=== PATIENT | male | born 1955 | race Caucasian/White ===

== ENCOUNTER 2018-05-18 07:54 | Inpatient (IN) | payer OTHER ==
[~2018-05-18] VITALS: Ht 175.3 cm; Wt 50.5 kg
[2018-05-18] VITALS (12 sets, daily range): BP systolic 97–159; BP diastolic 53–87
[~2018-05-18 07:54] MED LIST: ASPI-1197 PO; AUD IH; AZIT250T9 PO; CARV3.12 PO; CLOP75TA32 PO; FOLI-74 PO; IBUP-2071 PO; IPRA0.2S54 IH; LEVO500T2 PO; PRED20TA3 PO; SIMV20TA6 PO; TIOT18CA3 IH
[2018-05-18] MEDS ORDERED: METHYLPREDNISOLONE SOD SUCC 125MG/2ML VIAL ONE (08:05)
[2018-05-18] MEDS ORDERED: IPRATROPIUM/ALBUTEROL SULFATE 3 ML SOLUTION IH ONE ×3 (08:20)
[2018-05-18] MEDS ORDERED: VANCOMYCIN 1GM+NS 250ML 250 ML IV ONE (08:52)
[2018-05-18] MEDS ORDERED: MAGNESIUM 2GM PREMIX 50ML 50 ML IV ONE (08:52)
[2018-05-18 09:00] LABS: BASOPHILS % (AUTO) 0.8 % (0.0-5.0); EOSINOPHILS % (AUTO) 2.1 % (0.0-8.0); HEMATOCRIT 43.2 % (42-54); LYMPHOCYTES % (AUTO) 34.4 % (21.0-51.0); MEAN CORPUSCULAR HEMOGLOBIN 32.1 pg (27.0-33.0); MEAN CORPUSCULAR HGB CONC 32.4 g/dL (32.0-36.0); MEAN CORPUSCULAR VOLUME 98.9 fL (79-99); MONOCYTES % (AUTO) 7.6 % (3.0-13.0); NEUTROPHILS % (AUTO) 55.1 % (40.0-77.0); NUCLEATED RED BLOOD CELLS 0.1 % (0.0-0.19); PLATELET COUNT (AUTO) 204 K/uL (130-400); RED BLOOD CELL COUNT(AUTO) 4.36 MIL/uL (4.50-6.20); RED CELL DISTRIBUTION WIDTH 14.4 % (11.0-15.5); WHITE BLOOD COUNT (AUTO) 9.7 K/uL (4.8-10.8)
[2018-05-18 09:08] LABS: ABG BASE EXCESS -9.7 mmol/L (-2.0-3.0); ABG OXYGEN SATURATION 99.7 % (95.0-99.0); ABG PCO2 86 mmHg (35-48)
[2018-05-18 09:11] LABS: INR 1.02 (0.85-1.15); PARTIAL THROMBOPLASTIN TIME 26.5 SEC (26.3-35.5); PROTHROMBIN TIME 10.7 SEC (9.6-11.6)
[2018-05-18 09:23] LABS: B-TYPE NATRIURETIC PEPTIDE 2800 pg/mL (0-100)
[2018-05-18 09:42] LABS: ALBUMIN 2.9 g/dL (3.5-5.0); BILIRUBIN,TOTAL 0.5 mg/dL (0.2-1.0); POTASSIUM 5.3 mmol/L (3.5-5.1); TOTAL PROTEIN, SERUM 6.9 g/dL (6.0-8.3)
[2018-05-18 09:49] LABS: CREATININE 1.1 mg/dL (0.5-1.5)
[2018-05-18] MEDS ORDERED: SODIUM CHLORIDE 0.9% 1000ML 1,000 ML IV ONE (10:20)
[2018-05-18] MEDS ORDERED: VANCOMYCIN PROTOCOL PER PHARMACY IV SCH (11:00)
[2018-05-18] MEDS ORDERED: NICARDIPINE IN NACL, ISO-OSM 200 ML IV PRN (11:00)
[2018-05-18] MEDS: METHYLPREDNISOLONE SOD SUCC 40MG/ML 1ML IVP SCH ×3 (11:04→22:21)
[2018-05-18] MEDS ORDERED: SIMV20TA6 PO (11:04)
[2018-05-18] MEDS ORDERED: IBUP-2071 PO (11:04)
[2018-05-18] MEDS ORDERED: CARV3.1262 PO (11:04)
[2018-05-18] MEDS ORDERED: UMEC1DIS IH (11:06)
[2018-05-18] MEDS: LEVOFLOXACIN 750 MG/D5W 150 ML 150 ML IV SCH (11:24)
[2018-05-18] MEDS ORDERED: NICOTINE 21 MG/ 24 HR PATCH TD SCH (11:45)
[2018-05-18] MEDS ORDERED: ALBUTEROL SULFATE 0.083% 2.5 MG/3 ML INH IH SCH (11:45)
[2018-05-18 12:15] LABS: ABG BASE EXCESS -8.4 mmol/L (-2.0-3.0); ABG HCO3 20.9 mmol/L (21.0-28.0); ABG OXYGEN SATURATION 90.8 % (95.0-99.0); ABG PCO2 59 mmHg (35-48)
[2018-05-18] MEDS ORDERED: COMPOUND IV REFRIGERATED 1 EACH IVSOLN MISC PRN (13:15)
[2018-05-18] MEDS: IPRATROPIUM/ALBUTEROL SULFATE 3 ML SOLUTION IH SCH ×3 (14:09→21:46)
[2018-05-18] MEDS: SODIUM CHLORIDE 0.9% 1000ML 1,000 ML IV SCH (14:30)
[2018-05-18 15:59] LABS: ABG BASE EXCESS -5.5 mmol/L (-2.0-3.0); ABG HCO3 21.5 mmol/L (21.0-28.0); ABG OXYGEN SATURATION 95.7 % (95.0-99.0); ABG PCO2 47 mmHg (35-48)
[2018-05-18 16:17] LABS: CREATINE KINASE MB 11.4 ng/mL (0.5-3.6)
[2018-05-18 16:24] LABS: TROPONIN I 1.25 ng/mL (0.00-0.06)
[2018-05-18] MEDS: VANCOMYCIN 750MG + NS 250 ML IV SCH ×2 (20:26)
[2018-05-18 22:46] LABS: CREATINE KINASE MB 16.8 ng/mL (0.5-3.6)
[2018-05-18 23:07] LABS: TROPONIN I 3.6 ng/mL (0.00-0.06)
[2018-05-19] VITALS (25 sets, daily range): BP systolic 88–122; BP diastolic 46–79
[2018-05-19] MEDS: IPRATROPIUM/ALBUTEROL SULFATE 3 ML SOLUTION IH SCH ×6 (02:25→21:11)
[2018-05-19] MEDS: SODIUM CHLORIDE 0.9% 1000ML 1,000 ML IV SCH ×2 (02:41→19:06)
[2018-05-19 04:02] LABS: HEMATOCRIT 41.7 % (42-54); MEAN CORPUSCULAR HGB CONC 32.2 g/dL (32.0-36.0); MEAN CORPUSCULAR VOLUME 96.3 fL (79-99); NUCLEATED RED BLOOD CELLS 0.1 % (0.0-0.19); PLATELET COUNT (AUTO) 146 K/uL (130-400); RED BLOOD CELL COUNT(AUTO) 4.34 MIL/uL (4.50-6.20); RED CELL DISTRIBUTION WIDTH 13.7 % (11.0-15.5)
[2018-05-19 04:17] LABS: CREATININE 1.1 mg/dL (0.5-1.5); POTASSIUM 5.4 mmol/L (3.5-5.1)
[2018-05-19 05:16] LABS: ABG BASE EXCESS -2.7 mmol/L (-2.0-3.0); ABG HCO3 20.8 mmol/L (21.0-28.0); ABG OXYGEN SATURATION 98.6 % (95.0-99.0); ABG PCO2 33 mmHg (35-48)
[2018-05-19] MEDS: METHYLPREDNISOLONE SOD SUCC 40MG/ML 1ML IVP SCH ×3 (09:39→20:49)
[2018-05-19] MEDS: PANTOPRAZOLE SODIUM 40 MG TABLET.DR PO SCH (09:40)
[2018-05-19] MEDS: VANCOMYCIN 750MG + NS 250 ML IV SCH ×2 (09:42)
[2018-05-19] MEDS: ENOXAPARIN SODIUM 40 MG/0.4 ML SYRINGE SQ SCH (14:15)
[2018-05-19] MEDS: LEVOFLOXACIN 750 MG/D5W 150 ML 150 ML IV SCH (14:17)
[2018-05-19] MEDS ORDERED: LORAZEPAM 2 MG/ML 1 ML VIAL IVP PRN (15:00)
[2018-05-19] MEDS ORDERED: THIAMINE HCL 100 MG/ML 2ML VIAL IVP SCH (15:00)
[2018-05-19] MEDS ORDERED: CLOPIDOGREL BISULFATE 300 MG TAB PO SCH (19:15)
[2018-05-19] MEDS: FUROSEMIDE 10 MG/ML 2ML VIAL IV SCH (19:58)
[2018-05-19] MEDS ORDERED: THIAMINE HCL 100 MG/ML 2ML VIAL ONE ×2 (20:35→20:36)
[2018-05-19] MEDS: CARVEDILOL 3.125 MG TABLET PO SCH (21:00)
[2018-05-19] MEDS: BUDESONIDE 0.5 MG/2 ML INH IH SCH (21:11)
[2018-05-19] MEDS: SIMVASTATIN 20 MG TABLET PO SCH (21:58)
[2018-05-20] VITALS (25 sets, daily range): BP systolic 89–123; BP diastolic 57–80
[2018-05-20] MEDS: METHYLPREDNISOLONE SOD SUCC 40MG/ML 1ML IVP SCH ×5 (00:59→22:22)
[2018-05-20] MEDS: SODIUM CHLORIDE 0.9% 1000ML 1,000 ML IV SCH (01:00)
[2018-05-20] MEDS: IPRATROPIUM/ALBUTEROL SULFATE 3 ML SOLUTION IH SCH ×6 (02:16→22:12)
[2018-05-20 03:49] LABS: MEAN CORPUSCULAR HEMOGLOBIN 31.9 pg (27.0-33.0); MEAN CORPUSCULAR HGB CONC 33.3 g/dL (32.0-36.0); MEAN CORPUSCULAR VOLUME 95.6 fL (79-99); NUCLEATED RED BLOOD CELLS 0.1 % (0.0-0.19); PLATELET COUNT (AUTO) 147 K/uL (130-400); RED BLOOD CELL COUNT(AUTO) 3.97 MIL/uL (4.50-6.20); RED CELL DISTRIBUTION WIDTH 13.6 % (11.0-15.5); WHITE BLOOD COUNT (AUTO) 12.3 K/uL (4.8-10.8)
[2018-05-20 04:01] LABS: INR 1.1 (0.85-1.15); PARTIAL THROMBOPLASTIN TIME 28.2 SEC (26.3-35.5); PROTHROMBIN TIME 11.5 SEC (9.6-11.6)
[2018-05-20 04:16] LABS: PHOSPHORUS 2.4 mg/dL (2.5-4.9); POTASSIUM 4.6 mmol/L (3.5-5.1); THYROID STIMULATING HORMONE 1.71 uIU/mL (0.36-3.74)
[2018-05-20] MEDS: BUDESONIDE 0.5 MG/2 ML INH IH SCH ×2 (06:11→18:27)
[2018-05-20] MEDS: FUROSEMIDE 10 MG/ML 2ML VIAL IV SCH ×2 (08:51→20:14)
[2018-05-20] MEDS: PANTOPRAZOLE SODIUM 40 MG TABLET.DR PO SCH (08:51)
[2018-05-20] MEDS: CARVEDILOL 3.125 MG TABLET PO SCH ×2 (08:52→20:13)
[2018-05-20] MEDS: FOLIC ACID 1 MG TABLET PO SCH (08:52)
[2018-05-20] MEDS: CLOPIDOGREL BISULFATE 75 MG TAB PO SCH (08:53)
[2018-05-20] MEDS: ASPIRIN 81MG TAB.CHEW PO SCH (08:53)
[2018-05-20] MEDS: MULTIVITAMIN TABLET PO SCH (08:53)
[2018-05-20] MEDS: THIAMINE HCL 100 MG TABLET PO SCH (08:53)
[2018-05-20] MEDS: ENOXAPARIN SODIUM 40 MG/0.4 ML SYRINGE SQ SCH (08:54)
[2018-05-20] MEDS: SIMVASTATIN 20 MG TABLET PO SCH (20:13)
[2018-05-20] MEDS ORDERED: POTASSIUM PHOS 15 mMOL+NS250ML 250 ML IV SCH (20:30)
[2018-05-21] VITALS (17 sets, daily range): BP systolic 87–113; BP diastolic 60–75
[2018-05-21] MEDS: IPRATROPIUM/ALBUTEROL SULFATE 3 ML SOLUTION IH SCH ×6 (01:51→21:39)
[2018-05-21] MEDS ORDERED: ACETAMINOPHEN 325 MG TAB ONE (02:04)
[2018-05-21] MEDS: METHYLPREDNISOLONE SOD SUCC 40MG/ML 1ML IVP SCH ×4 (04:38→23:00)
[2018-05-21 04:48] LABS: ABG BASE EXCESS 1.9 mmol/L (-2.0-3.0); ABG HCO3 25.6 mmol/L (21.0-28.0); ABG OXYGEN SATURATION 98.8 % (95.0-99.0); ABG PCO2 37 mmHg (35-48)
[2018-05-21 05:07] LABS: HEMATOCRIT 35.5 % (42-54); MEAN CORPUSCULAR HEMOGLOBIN 31.1 pg (27.0-33.0); MEAN CORPUSCULAR HGB CONC 32.8 g/dL (32.0-36.0); MEAN CORPUSCULAR VOLUME 94.8 fL (79-99); NUCLEATED RED BLOOD CELLS 0.1 % (0.0-0.19); PLATELET COUNT (AUTO) 123 K/uL (130-400); RED BLOOD CELL COUNT(AUTO) 3.74 MIL/uL (4.50-6.20); RED CELL DISTRIBUTION WIDTH 13.6 % (11.0-15.5); WHITE BLOOD COUNT (AUTO) 10.8 K/uL (4.8-10.8)
[2018-05-21 05:21] LABS: INR 1.1 (0.85-1.15); PARTIAL THROMBOPLASTIN TIME 26.8 SEC (26.3-35.5); PROTHROMBIN TIME 11.5 SEC (9.6-11.6)
[2018-05-21 05:24] LABS: ALBUMIN 2.4 g/dL (3.5-5.0); BILIRUBIN,TOTAL 0.3 mg/dL (0.2-1.0); CREATININE 1.1 mg/dL (0.5-1.5); MAGNESIUM 1.9 mg/dL (1.80-2.40); PHOSPHORUS 2.9 mg/dL (2.5-4.9); POTASSIUM 3.9 mmol/L (3.5-5.1); TOTAL PROTEIN, SERUM 5.5 g/dL (6.0-8.3)
[2018-05-21 05:41] LABS: B-TYPE NATRIURETIC PEPTIDE 3010 pg/mL (0-100)
[2018-05-21] MEDS: BUDESONIDE 0.5 MG/2 ML INH IH SCH ×2 (06:25→18:40)
[2018-05-21] MEDS: FUROSEMIDE 10 MG/ML 2ML VIAL IV SCH ×2 (06:30→17:32)
[2018-05-21] MEDS: CLOPIDOGREL BISULFATE 75 MG TAB PO SCH (08:25)
[2018-05-21] MEDS: THIAMINE HCL 100 MG TABLET PO SCH (08:25)
[2018-05-21] MEDS: MULTIVITAMIN TABLET PO SCH (08:25)
[2018-05-21] MEDS: FOLIC ACID 1 MG TABLET PO SCH (08:26)
[2018-05-21] MEDS: CARVEDILOL 3.125 MG TABLET PO SCH ×3 (08:26→21:20)
[2018-05-21] MEDS: ASPIRIN 81MG TAB.CHEW PO SCH (08:26)
[2018-05-21] MEDS: PANTOPRAZOLE SODIUM 40 MG TABLET.DR PO SCH (08:26)
[2018-05-21] MEDS: ENOXAPARIN SODIUM 40 MG/0.4 ML SYRINGE SQ SCH (08:26)
[2018-05-21 09:20] LABS: CHOLESTEROL 105 mg/dL (<200); HDL CHOLESTEROL 32 mg/dL (29-71); LDL DIRECT 65 mg/dL (0-99); TRIGLYCERIDES 91 mg/dL (30-200)
[2018-05-21 13:39] LABS: ABG BASE EXCESS -0.1 mmol/L (-2.0-3.0); ABG HCO3 24.5 mmol/L (21.0-28.0); ABG OXYGEN SATURATION 98.4 % (95.0-99.0); ABG PCO2 40 mmHg (35-48)
[2018-05-21] MEDS: SIMVASTATIN 20 MG TABLET PO SCH (21:20)
[2018-05-22] MEDS: IPRATROPIUM/ALBUTEROL SULFATE 3 ML SOLUTION IH SCH ×5 (01:47→18:06)
[2018-05-22 03:53] VITALS: BP 96/71
[2018-05-22] MEDS: METHYLPREDNISOLONE SOD SUCC 40MG/ML 1ML IVP SCH ×4 (05:30→22:01)
[2018-05-22] MEDS: FUROSEMIDE 10 MG/ML 2ML VIAL IV SCH (05:30)
[2018-05-22] MEDS: BUDESONIDE 0.5 MG/2 ML INH IH SCH ×2 (06:11→18:11)
[2018-05-22 07:31] VITALS: BP 107/84
[2018-05-22] MEDS: CLOPIDOGREL BISULFATE 75 MG TAB PO SCH (08:25)
[2018-05-22] MEDS: ASPIRIN 81MG TAB.CHEW PO SCH (08:25)
[2018-05-22] MEDS: PANTOPRAZOLE SODIUM 40 MG TABLET.DR PO SCH (08:25)
[2018-05-22] MEDS: THIAMINE HCL 100 MG TABLET PO SCH (08:25)
[2018-05-22] MEDS: FOLIC ACID 1 MG TABLET PO SCH (08:25)
[2018-05-22] MEDS: CARVEDILOL 3.125 MG TABLET PO SCH ×2 (08:25→20:15)
[2018-05-22] MEDS: MULTIVITAMIN TABLET PO SCH (08:25)
[2018-05-22] MEDS: ENOXAPARIN SODIUM 40 MG/0.4 ML SYRINGE SQ SCH (08:26)
[2018-05-22] MEDS ORDERED: FUROSEMIDE 40 MG TABLET ONE (09:39)
[2018-05-22] MEDS: FUROSEMIDE 40 MG TABLET PO SCH (10:00)
[2018-05-22 11:08] VITALS: BP 87/52
[2018-05-22 16:26] VITALS: BP 106/71
[2018-05-22 18:29] VITALS: BP 104/65
[2018-05-22] MEDS: SIMVASTATIN 20 MG TABLET PO SCH (20:15)
[2018-05-22 23:29] VITALS: BP 106/72
[2018-05-23 03:59] VITALS: BP 99/69
[2018-05-23 03:59] LABS: BASOPHILS % (AUTO) 0.1 % (0.0-5.0); HEMATOCRIT 36.5 % (42-54); LYMPHOCYTES % (AUTO) 3.6 % (21.0-51.0); MEAN CORPUSCULAR HEMOGLOBIN 31.8 pg (27.0-33.0); MEAN CORPUSCULAR HGB CONC 33.6 g/dL (32.0-36.0); MEAN CORPUSCULAR VOLUME 94.5 fL (79-99); MONOCYTES % (AUTO) 5.6 % (3.0-13.0); NEUTROPHILS % (AUTO) 90.7 % (40.0-77.0); NUCLEATED RED BLOOD CELLS 0.2 % (0.0-0.19); PLATELET COUNT (AUTO) 118 K/uL (130-400); RED BLOOD CELL COUNT(AUTO) 3.86 MIL/uL (4.50-6.20); RED CELL DISTRIBUTION WIDTH 13.5 % (11.0-15.5)
[2018-05-23] MEDS: METHYLPREDNISOLONE SOD SUCC 40MG/ML 1ML IVP SCH ×4 (04:01→21:49)
[2018-05-23 04:25] LABS: CREATININE 1.3 mg/dL (0.5-1.5); PHOSPHORUS 3.4 mg/dL (2.5-4.9); POTASSIUM 3.6 mmol/L (3.5-5.1)
[2018-05-23 04:29] LABS: B-TYPE NATRIURETIC PEPTIDE 2870 pg/mL (0-100)
[2018-05-23] MEDS: BUDESONIDE 0.5 MG/2 ML INH IH SCH ×2 (06:19→19:48)
[2018-05-23 07:36] VITALS: BP 108/74
[2018-05-23 08:16] LABS: ABG BASE EXCESS 6.6 mmol/L (-2.0-3.0); ABG OXYGEN SATURATION 94.8 % (95.0-99.0); ABG PCO2 49 mmHg (35-48)
[2018-05-23] MEDS: PANTOPRAZOLE SODIUM 40 MG TABLET.DR PO SCH (08:42)
[2018-05-23] MEDS: FUROSEMIDE 40 MG TABLET PO SCH (08:42)
[2018-05-23] MEDS: MULTIVITAMIN TABLET PO SCH (08:43)
[2018-05-23] MEDS: ASPIRIN 81MG TAB.CHEW PO SCH (08:43)
[2018-05-23] MEDS: CLOPIDOGREL BISULFATE 75 MG TAB PO SCH (08:43)
[2018-05-23] MEDS: CARVEDILOL 3.125 MG TABLET PO SCH ×2 (08:44→21:36)
[2018-05-23] MEDS: THIAMINE HCL 100 MG TABLET PO SCH (08:44)
[2018-05-23] MEDS: FOLIC ACID 1 MG TABLET PO SCH (08:44)
[2018-05-23] MEDS: ENOXAPARIN SODIUM 40 MG/0.4 ML SYRINGE SQ SCH (08:45)
[2018-05-23 11:27] VITALS: BP 107/70
[2018-05-23 16:17] VITALS: BP 100/69
[2018-05-23] MEDS: IPRATROPIUM 0.5 MG/2.5 ML INH IH PRN (19:26)
[2018-05-23 19:32] VITALS: BP 121/82
[2018-05-23] MEDS: SIMVASTATIN 20 MG TABLET PO SCH (21:35)
[2018-05-23 23:37] VITALS: BP 118/88
[2018-05-24 03:15] VITALS: BP 107/73
[2018-05-24 04:38] LABS: CREATININE 0.9 mg/dL (0.5-1.5); PHOSPHORUS 3.8 mg/dL (2.5-4.9)
[2018-05-24 04:56] LABS: POTASSIUM 2.9 mmol/L (3.5-5.1)
[2018-05-24] MEDS: METHYLPREDNISOLONE SOD SUCC 40MG/ML 1ML IVP SCH (06:20)
[2018-05-24] MEDS: IPRATROPIUM 0.5 MG/2.5 ML INH IH PRN ×4 (06:20→23:30)
[2018-05-24] MEDS: BUDESONIDE 0.5 MG/2 ML INH IH SCH ×2 (06:43→18:20)
[2018-05-24] MEDS ORDERED: POTASSIUM CHLORIDE 10% ELIXIR 20 MEQ/15 ML UDCUP PO PRN (06:45)
[2018-05-24] MEDS ORDERED: POTASSIUM CHLORIDE 20MEQ/100ML 100 ML IV PRN (06:45)
[2018-05-24] MEDS ORDERED: LIDOCAINE HCL-MPF 1% 2ML VIAL IVP PRN (06:45)
[2018-05-24 07:00] VITALS: BP 136/81
[2018-05-24 08:12] LABS: ABG BASE EXCESS 7.3 mmol/L (-2.0-3.0); ABG HCO3 33.1 mmol/L (21.0-28.0); ABG OXYGEN SATURATION 95.3 % (95.0-99.0); ABG PCO2 51 mmHg (35-48)
[2018-05-24] MEDS: FOLIC ACID 1 MG TABLET PO SCH (08:32)
[2018-05-24] MEDS: ASPIRIN 81MG TAB.CHEW PO SCH (08:32)
[2018-05-24] MEDS: MULTIVITAMIN TABLET PO SCH (08:32)
[2018-05-24] MEDS: CLOPIDOGREL BISULFATE 75 MG TAB PO SCH (08:32)
[2018-05-24] MEDS: THIAMINE HCL 100 MG TABLET PO SCH (08:32)
[2018-05-24] MEDS: CARVEDILOL 3.125 MG TABLET PO SCH ×2 (08:33→20:51)
[2018-05-24] MEDS: FUROSEMIDE 20 MG TABLET PO SCH (08:33)
[2018-05-24] MEDS: PANTOPRAZOLE SODIUM 40 MG TABLET.DR PO SCH (08:33)
[2018-05-24] MEDS: PREDNISONE 20 MG TABLET PO SCH (08:33)
[2018-05-24] MEDS: ENOXAPARIN SODIUM 40 MG/0.4 ML SYRINGE SQ SCH (08:34)
[2018-05-24] MEDS: POTASSIUM CHLORIDE 20 MEQ ERTAB PO PRN ×2 (08:37→13:17)
[2018-05-24 11:00] VITALS: BP 141/84
[2018-05-24 16:00] VITALS: BP 135/97
[2018-05-24] MEDS: ALPRAZOLAM 1 MG TAB PO PRN (17:14)
[2018-05-24 19:00] VITALS: BP 125/87
[2018-05-24] MEDS: SIMVASTATIN 20 MG TABLET PO SCH (20:51)
[2018-05-24 23:00] VITALS: BP 94/61
[2018-05-25 03:00] VITALS: BP 114/87
[2018-05-25] MEDS: IPRATROPIUM 0.5 MG/2.5 ML INH IH PRN ×3 (06:07→18:49)
[2018-05-25] MEDS: BUDESONIDE 0.5 MG/2 ML INH IH SCH ×2 (06:28→18:59)
[2018-05-25 07:00] VITALS: BP 120/81
[2018-05-25] MEDS: CLOPIDOGREL BISULFATE 75 MG TAB PO SCH (08:29)
[2018-05-25] MEDS: PREDNISONE 20 MG TABLET PO SCH (08:29)
[2018-05-25] MEDS: ASPIRIN 81MG TAB.CHEW PO SCH (08:29)
[2018-05-25] MEDS: ENOXAPARIN SODIUM 40 MG/0.4 ML SYRINGE SQ SCH (08:29)
[2018-05-25] MEDS: PANTOPRAZOLE SODIUM 40 MG TABLET.DR PO SCH (08:29)
[2018-05-25] MEDS: MULTIVITAMIN TABLET PO SCH (08:29)
[2018-05-25] MEDS: CARVEDILOL 3.125 MG TABLET PO SCH ×2 (08:29→20:58)
[2018-05-25] MEDS: FUROSEMIDE 20 MG TABLET PO SCH (08:30)
[2018-05-25] MEDS: FOLIC ACID 1 MG TABLET PO SCH (08:30)
[2018-05-25] MEDS: THIAMINE HCL 100 MG TABLET PO SCH (08:31)
[2018-05-25 11:00] VITALS: BP 106/76
[2018-05-25 16:00] VITALS: BP 132/70
[2018-05-25 19:00] VITALS: BP 109/73
[2018-05-25] MEDS: SIMVASTATIN 20 MG TABLET PO SCH (20:58)
[2018-05-25 23:00] VITALS: BP 117/77
[2018-05-26] MEDS: IPRATROPIUM 0.5 MG/2.5 ML INH IH PRN ×5 (00:04→23:05)
[2018-05-26 03:00] VITALS: BP 111/78
[2018-05-26] MEDS: BUDESONIDE 0.5 MG/2 ML INH IH SCH ×2 (06:18→18:04)
[2018-05-26 07:44] VITALS: BP 132/62
[2018-05-26] MEDS: MULTIVITAMIN TABLET PO SCH (09:16)
[2018-05-26] MEDS: ASPIRIN 81MG TAB.CHEW PO SCH (09:16)
[2018-05-26] MEDS: CLOPIDOGREL BISULFATE 75 MG TAB PO SCH (09:16)
[2018-05-26] MEDS: PANTOPRAZOLE SODIUM 40 MG TABLET.DR PO SCH (09:16)
[2018-05-26] MEDS: FOLIC ACID 1 MG TABLET PO SCH (09:16)
[2018-05-26] MEDS: THIAMINE HCL 100 MG TABLET PO SCH (09:16)
[2018-05-26] MEDS: PREDNISONE 20 MG TABLET PO SCH (09:16)
[2018-05-26] MEDS: CARVEDILOL 3.125 MG TABLET PO SCH ×2 (09:17→19:36)
[2018-05-26] MEDS: FUROSEMIDE 20 MG TABLET PO SCH (09:17)
[2018-05-26] MEDS: ENOXAPARIN SODIUM 40 MG/0.4 ML SYRINGE SQ SCH (09:18)
[2018-05-26 11:11] VITALS: BP 138/95
[2018-05-26 16:37] VITALS: BP 118/73
[2018-05-26] MEDS: SIMVASTATIN 20 MG TABLET PO SCH (19:36)
[2018-05-26] MEDS: ALPRAZOLAM 1 MG TAB PO PRN (19:36)
[2018-05-26 19:54] VITALS: BP 114/81
[2018-05-26 23:35] VITALS: BP 107/73
[2018-05-27] MEDS: ALPRAZOLAM 1 MG TAB PO PRN ×2 (02:36→09:44)
[2018-05-27 04:23] VITALS: BP 119/66
[2018-05-27] MEDS: IPRATROPIUM 0.5 MG/2.5 ML INH IH PRN ×4 (05:57→23:37)
[2018-05-27] MEDS: BUDESONIDE 0.5 MG/2 ML INH IH SCH ×2 (06:19→19:05)
[2018-05-27 07:54] VITALS: BP 115/81
[2018-05-27] MEDS: ASPIRIN 81MG TAB.CHEW PO SCH (09:40)
[2018-05-27] MEDS: PREDNISONE 20 MG TABLET PO SCH (09:40)
[2018-05-27] MEDS: PANTOPRAZOLE SODIUM 40 MG TABLET.DR PO SCH (09:40)
[2018-05-27] MEDS: FOLIC ACID 1 MG TABLET PO SCH (09:40)
[2018-05-27] MEDS: THIAMINE HCL 100 MG TABLET PO SCH (09:40)
[2018-05-27] MEDS: FUROSEMIDE 20 MG TABLET PO SCH (09:40)
[2018-05-27] MEDS: MULTIVITAMIN TABLET PO SCH (09:40)
[2018-05-27] MEDS: CLOPIDOGREL BISULFATE 75 MG TAB PO SCH (09:40)
[2018-05-27] MEDS: CARVEDILOL 3.125 MG TABLET PO SCH ×2 (09:41→20:59)
[2018-05-27] MEDS: ENOXAPARIN SODIUM 40 MG/0.4 ML SYRINGE SQ SCH (09:45)
[2018-05-27 11:07] VITALS: BP 97/72
[2018-05-27 16:17] VITALS: BP 115/84
[2018-05-27 19:36] VITALS: BP 119/85
[2018-05-27] MEDS: SIMVASTATIN 20 MG TABLET PO SCH (20:58)
[2018-05-28] VITALS (7 sets, daily range): BP systolic 116–126; BP diastolic 61–92
[2018-05-28] MEDS: ALPRAZOLAM 0.5 MG TABLET PO PRN ×2 (02:24→21:07)
[2018-05-28] MEDS: IPRATROPIUM 0.5 MG/2.5 ML INH IH PRN ×4 (06:37→23:52)
[2018-05-28] MEDS: BUDESONIDE 0.5 MG/2 ML INH IH SCH ×2 (06:38→18:27)
[2018-05-28] MEDS: CARVEDILOL 3.125 MG TABLET PO SCH ×2 (10:17→20:21)
[2018-05-28] MEDS: FOLIC ACID 1 MG TABLET PO SCH (10:17)
[2018-05-28] MEDS: ASPIRIN 81MG TAB.CHEW PO SCH (10:17)
[2018-05-28] MEDS: FUROSEMIDE 20 MG TABLET PO SCH (10:17)
[2018-05-28] MEDS: CLOPIDOGREL BISULFATE 75 MG TAB PO SCH (10:17)
[2018-05-28] MEDS: MULTIVITAMIN TABLET PO SCH (10:17)
[2018-05-28] MEDS: THIAMINE HCL 100 MG TABLET PO SCH (10:17)
[2018-05-28] MEDS: PANTOPRAZOLE SODIUM 40 MG TABLET.DR PO SCH (10:17)
[2018-05-28] MEDS: ENOXAPARIN SODIUM 40 MG/0.4 ML SYRINGE SQ SCH (10:20)
[2018-05-28] MEDS: SIMVASTATIN 20 MG TABLET PO SCH (20:22)
[2018-05-29 03:51] VITALS: BP 100/69
[2018-05-29] MEDS: IPRATROPIUM 0.5 MG/2.5 ML INH IH PRN (06:23)
[2018-05-29] MEDS: BUDESONIDE 0.5 MG/2 ML INH IH SCH (06:23)
[2018-05-29 07:00] VITALS: BP 109/74
[2018-05-29] MEDS: FOLIC ACID 1 MG TABLET PO SCH (10:07)
[2018-05-29] MEDS: CLOPIDOGREL BISULFATE 75 MG TAB PO SCH (10:07)
[2018-05-29] MEDS: ALPRAZOLAM 0.5 MG TABLET PO PRN (10:07)
[2018-05-29] MEDS: FUROSEMIDE 20 MG TABLET PO SCH (10:07)
[2018-05-29] MEDS: THIAMINE HCL 100 MG TABLET PO SCH (10:07)
[2018-05-29] MEDS: MULTIVITAMIN TABLET PO SCH (10:07)
[2018-05-29] MEDS: ASPIRIN 81MG TAB.CHEW PO SCH (10:07)
[2018-05-29] MEDS: PANTOPRAZOLE SODIUM 40 MG TABLET.DR PO SCH (10:07)
[2018-05-29] MEDS: CARVEDILOL 3.125 MG TABLET PO SCH (10:07)
[2018-05-29] MEDS: ENOXAPARIN SODIUM 40 MG/0.4 ML SYRINGE SQ SCH (10:10)
[2018-05-29 11:27] VITALS: BP 96/60
== END 2018-05-29 14:00 | DRG 280 ==
LOC: EDH 07:54 → EDHIP 10:00 → 2CH 10:37 → 2BH 05-21 19:52 → 2DH 05-25 18:21
PROVIDERS: ADMIT Internal Medicine; ATTEND Internal Medicine
PROC: 5A09357 Assistance with Respiratory Ventilation, Less than 24 Consecutive Hours, Continuous Positive Airway Pressure (ICD-10-PCS; principal; 2018-05-18)
PROC: 5A09357 Assistance with Respiratory Ventilation, Less than 24 Consecutive Hours, Continuous Positive Airway Pressure (ICD-10-PCS; 2018-05-18)
PROC: 5A09357 Assistance with Respiratory Ventilation, Less than 24 Consecutive Hours, Continuous Positive Airway Pressure (ICD-10-PCS; 2018-05-19)
PROC: 5A09357 Assistance with Respiratory Ventilation, Less than 24 Consecutive Hours, Continuous Positive Airway Pressure (ICD-10-PCS; 2018-05-20)
PROC: 5A09357 Assistance with Respiratory Ventilation, Less than 24 Consecutive Hours, Continuous Positive Airway Pressure (ICD-10-PCS; 2018-05-22)
DX: I21.4 Non-ST elevation (NSTEMI) myocardial infarction (principal); J96.22 Acute and chronic respiratory failure with hypercapnia; J96.21 Acute and chronic respiratory failure with hypoxia; I50.43 Acute on chronic combined systolic (congestive) and diastolic (congestive) heart failure; J44.1 Chronic obstructive pulmonary disease with (acute) exacerbation; E87.2 Acidosis; I47.2 Ventricular tachycardia; R64 Cachexia; F17.200 Nicotine dependence, unspecified, uncomplicated; E78.5 Hyperlipidemia, unspecified; I11.0 Hypertensive heart disease with heart failure; K74.60 Unspecified cirrhosis of liver; I25.10 Atherosclerotic heart disease of native coronary artery without angina pectoris; F10.20 Alcohol dependence, uncomplicated; F32.9 Major depressive disorder, single episode, unspecified; I25.5 Ischemic cardiomyopathy; I45.10 Unspecified right bundle-branch block; J84.10 Pulmonary fibrosis, unspecified; Z79.82 Long term (current) use of aspirin; Z74.01 Bed confinement status; I25.2 Old myocardial infarction; Z91.14 Patient's other noncompliance with medication regimen; Z91.19 Patient's noncompliance with other medical treatment and regimen; Z95.5 Presence of coronary angioplasty implant and graft; Z99.81 Dependence on supplemental oxygen
CPT/HCPCS: 36415; 36600; 71045; 71250; 80048; 80053; 80061; 82550; 82553; 82803; 83605; 83735; 83874; 83880; 84100; 84132; 84443; 84484; 85025; 85027; 85610; 85730; 87040; 87804; 93005; 93306; 94640; 94660; 94664; 94760; 97039; A6234; J1650; J1940; J1956; J2920; J2930; J3370; J3411; J3475; J7030